=== PATIENT | male | born 1975 | race Caucasian/White ===

== ENCOUNTER 2019-09-30 09:32 | Outpatient (CLI) | payer OTHER, SELFPAY ==
[2019-10-01 14:58] LABS: SARS-CoV-2 RNA PCR Negative
== END 2019-09-30 09:33 | disposition home or self-care (01) ==
LOC: CHSLAB 09:37
PROVIDERS: PCP Family Medicine; Visit Provider Family Medicine
DX: Z20.828 Contact with and (suspected) exposure to other viral communicable diseases (principal)
CPT/HCPCS: 87635; C9803; U0003

== ENCOUNTER 2019-10-07 15:04 | Emergency (ER) | payer OTHER, SELFPAY ==
[2019-10-07 15:05] VITALS: BP 149/100; PULSE 81; RESP 16; TEMP 36.8; O2SAT 95
--- NOTE | 2019-10-07 15:15 | ED.ANIMALBIT ---
HPI - Animal Bite General Chief Complaint: Unspecified Stated Complaint: stung by something Time Seen by Provider: 10/07/19 15:14 Source: patient Mode of arrival: ambulatory Limitations: no limitations History of Present Illness HPI narrative: 44-year-old man comes in today complaining of left-sided facial swelling that started few hours ago. Patient states he was stone near his left eye by what he thinks was a wasp. He was at work at that time. He denies any nausea, vomiting, lightheadedness, rash, throat swelling, wheezing or tongue swelling. He has had no prior allergic reactions to bee or wasp stings. complaint: other ( Wasp sting) Onset (ago): hour(s) (2) Animal: other ( wasp) Description of animal: wild animal Location: face Context: unprovoked Treatments prior to arrival: other ( cool compress) Related Data Home Medications Medication Instructions Recorded Confirmed atorvastatin 40 mg PO DAILY 10/07/19 10/07/19 Allergies Allergy/AdvReac Type Severity Reaction Status Date / Time No Known Allergies Allergy Verified 10/07/19 15:15 Review of Systems Constitutional: Constitutional: Denies chills and Denies fever(s) Eyes: Eyes: Denies change in vision and Denies photophobia ENT: Denies dysphagia, Denies nasal congestion and Denies sore throat Cardiovascular: Cardiovascular: Denies chest pain and Denies radiating jaw, neck or arm pain Respiratory: Respiratory: Denies cough, Denies dyspnea and Denies wheezing Gastrointestinal: Gastrointestinal: Denies abdominal pain, Denies nausea and Denies vomiting Musculoskeletal: Musculoskeletal: Denies back pain, Denies joint swelling and Denies muscle cramps Integumentary/Breasts: Skin/Breast: Denies pruritus, Denies erythema and Denies rash Neurologic: Denies vertigo, Denies dizziness and Denies syncope Hematologic/Lymphatic: Hematologic/Lymphatic: Denies easy bleeding and Denies easy bruising Allergic/Immunologic: Allergic/Immunologic: Denies lip swelling, Denies throat swelling and Denies tongue swelling PMFSH Social History Social History Smoking status: Never smoker Substance use: never Living arrangements: with family Occupation/Education: occupation Exam Const: General: healthy appearing, no acute distress and alert Orientation/consciousness: patient oriented x3 HENMT: Ears: external ears normal, TM's normal bilaterally and EAC's normal Mouth: Yes moist mucous membranes Throat: posterior oropharynx normal and uvula midline Other: Left-sided facial swelling including the periorbital area, forehead, left cheek and down to the jaw line. There is no warmth or erythema. Eyes: Conjunctivae: conjunctivae normal Pupils: Equal, round and reactive pupils present EOM: EOMs intact bilaterally Resp: Effort & Inspection: normal respiratory effort and not labored Auscultation: clear to auscultation bilaterally, no rales, no rhonchi and no wheezes Cardio: Rate: regular rate Rhythm: regular rhythm Heart sounds: no murmurs Skin: General skin exam: normal color, no jaundice and no pallor Rashes: no rashes Neuro: General: patient oriented x3, moves all extremities, no focal motor deficits and CN's II-XI intact bilaterally Speech: normal speech Extrem: General: normal to inspection and no clubbing, cyanosis or edema Psych: Appearance: grossly normal and well kempt Mental Status: mental status grossly normal Affect: normal affect Attitude: cooperative Thought content: Yes Normal thought content present MDM - Animal Bite Differential Diagnosis Differential diagnosis: Likely other ( Insect sting) Discharge Plan Discharge Clinical Impression: Insect sting Qualifiers: Encounter type: initial encounter Injury intent: accidental or unintentional Qualified Code(s): T63.481A - Toxic effect of venom of other arthropod, accidental (unintentional), initial encounter Patient Dispositio
[2019-10-07] MEDS: methylPREDNISolone SOD SUCC 125 MG VIAL IM (15:29)
[2019-10-07 15:38] VITALS: RESP 14; O2SAT 95
== END 2019-10-07 15:40 | disposition home or self-care (01) ==
PROVIDERS: Emergency Provider Emergency Medicine; PCP Family Medicine
DX: T63.481A Toxic effect of venom of other arthropod, accidental (unintentional), initial encounter (principal)
CPT/HCPCS: 96372; 99283; J2930

== ENCOUNTER 2021-05-10 09:09 | Outpatient (CLI) | payer OTHER, SELFPAY ==
--- NOTE | ~2021-05-10 | XR_ITS ---
XR ankle LT min 3V DATE: 05/10/2021 09:25 INDICATION: Left posterior heel pain for 6 months with lump TECHNIQUE: 4 views COMPARISON: None FINDINGS: There is prominent posterior calcaneal enthesopathy. This is associated with overlying soft tissue prominence, accounting for the clinical complaint of lump/protrusion. There is mild lateral soft tissue swelling of the ankle. No fracture or dislocation of the ankle or d isruption of the ankle mortise. No periosteal reaction or bone destruction. IMPRESSION: Prominent posterior calcaneal enthesopathy Reviewed, dictated and finalized at location A.
== END 2021-05-10 09:10 | disposition home or self-care (01) ==
LOC: CHSIMG 09:11
PROVIDERS: PCP Family Medicine; Visit Provider Family Medicine
DX: M79.672 Pain in left foot (principal)
CPT/HCPCS: 73610

== ENCOUNTER 2022-04-07 15:46 | Outpatient (CLI) | payer OTHER, SELFPAY ==
--- NOTE | ~2022-04-07 | XR_ITS ---
EXAMINATION: XR chest 2V 04/07/2022 16:16 INDICATION: Left-sided chest pain PROCEDURE: 2 view chest COMPARISON: No prior studies for comparison. FINDINGS: The lungs are clear. The cardiomediastinal silhouette is within normal limits. There are no pleural effusions. There is no pneumothorax suspected. IMPRESSION: 1: NO ACUTE CARDIOPULMONARY DISEASE. Reviewed, dictated and finalized at location B. MATIC HOIST OPERATOR
== END 2022-04-07 15:47 | disposition home or self-care (01) ==
LOC: CHSIMG 15:48
PROVIDERS: PCP Family Medicine; Visit Provider Family Medicine
DX: R07.9 Chest pain, unspecified (principal)
CPT/HCPCS: 71046

== ENCOUNTER 2022-05-19 09:30 | Outpatient (CLI) | payer OTHER, SELFPAY ==
--- NOTE | 2022-05-19 09:30 | EST_ITS ---
Patient Info Name: Sanjay Harmon Age: 47 years : 1975 Gender: Male Ht: 70 in Wt: 220 lbs BSA: 2.25 m2 HR: 83 bpm BP: 153 / 102 mmHg Heart Rhythm: Sinus Rhythm Technical Quality: Good Exam Date: 05/19/2022 9:44 AM Exam Location: [facility] Patient Status: Outpatient Admit Date: 05/19/2022 Staff Ordering Physician: Dennis Good MD Attending Provider: Santiago DONALD CEP Exercise Technologist: Celestina Baker CRT Exercise Physician: Meredith Donald CEP Exam Type: CA stress test treadmill Study Info Indications ChestPain - A treadmill exercise stress test was performed. History/Risk Factors Obesity: Yes History/Risk Factors Chest Pain. Summary 1. 1. Negative Elvis exercise stress test for ischemic ST changes by ECG criteria. 2. 2. Good functional capacity, achieving 12 METs of workload. 3. 3. Appropriate HR response to exercise. 4. 4. Appropriate HR recovery at 1 minute post exercise. 5. 5. Baseline hypertension with hypertensive response to exercise. 6. 6. No imaging with stress testing. Protocol: Elvis Stress ECG Details Stage: REST Duration (min): 2 min : 25 sec Speed (mph): 0.0 Grade (%): 0 HR (bpm): 83 SBP (mmHg): 153 DBP (mmHg): 102 METS: --- Stage: REST Duration (min): 3 min : 36 sec Speed (mph): 0.0 Grade (%): 0 HR (bpm): 88 SBP (mmHg): 153 DBP (mmHg): 102 METS: --- Stage: STAGE 1 Duration (min): 1 min : 0 sec Speed (mph): 1.7 Grade (%): 10 HR (bpm): 99 SBP (mmHg): 153 DBP (mmHg): 102 METS: --- Stage: STAGE 1 Duration (min): 2 min : 0 sec Speed (mph): 1.7 Grade (%): 10 HR (bpm): 106 SBP (mmHg): 153 DBP (mmHg): 102 METS: --- Stage: STAGE 1 Duration (min): 3 min : 0 sec Speed (mph): 1.7 Grade (%): 10 HR (bpm): 103 SBP (mmHg): 164 DBP (mmHg): 102 METS: --- Stage: STAGE 2 Duration (min): 1 min : 0 sec Speed (mph): 2.5 Grade (%): 12 HR (bpm): 117 SBP (mmHg): 164 DBP (mmHg): 102 METS: --- Stage: STAGE 2 Duration (min): 2 min : 0 sec Speed (mph): 2.5 Grade (%): 12 HR (bpm): 125 SBP (mmHg): 164 DBP (mmHg): 102 METS: --- Stage: STAGE 2 Duration (min): 3 min : 0 sec Speed (mph): 2.5 Grade (%): 12 HR (bpm): 127 SBP (mmHg): 174 DBP (mmHg): 103 METS: --- Stage: STAGE 3 Duration (min): 1 min : 0 sec Speed (mph): 3.4 Grade (%): 14 HR (bpm): 137 SBP (mmHg): 174 DBP (mmHg): 103 METS: --- Stage: STAGE 3 Duration (min): 2 min : 0 sec Speed (mph): 3.4 Grade (%): 14 HR (bpm): 149 SBP (mmHg): 174 DBP (mmHg): 103 METS: --- Stage: STAGE 3 Duration (min): 3 min : 0 sec Speed (mph): 3.4 Grade (%): 14 HR (bpm): 151 SBP (mmHg): 206 DBP (mmHg): 95 METS: --- Stage: STAGE 4 Duration (min): 1 min : 0 sec Speed
== END 2022-05-19 09:31 | disposition home or self-care (01) ==
LOC: CHSCARD 09:32
PROVIDERS: PCP Family Medicine; Visit Provider Family Medicine
DX: R07.9 Chest pain, unspecified (principal)
CPT/HCPCS: 93017

== ENCOUNTER 2022-10-16 09:56 | Outpatient (CLI) | payer OTHER, SELFPAY ==
[2022-10-16 10:25] LABS: Microalbumin Urine Random < 13.0 mg/L
[2022-10-16 11:02] LABS: Alanine Aminotransferase 37 U/L (16-63); Albumin Level 3.5 g/dL (3.4-5.0); Alkaline Phosphatase 98 U/L (46-116); Anion Gap 9 mmol/L (8-16); Aspartate Amino Transferase 22 U/L (15-37); Bilirubin,Total 0.5 mg/dL (0.00-1.00); Blood Urea Nitrogen 10 mg/dL (7-18); Calcium 8.9 mg/dL (8.5-10.1); Carbon Dioxide 27 mmol/L (21-32); Chloride 104 mmol/L (98-108); Cholesterol 131 mg/dL (0-200); Estimated Glomerular Filt Rate > 60; Glucose 105 mg/dL (70-99); HDL Direct 27 mg/dL (40-60); LDL Cholesterol Calculated 62 mg/dL (<130); Osmolality Calculated 289 mOsm/kg (285-295); Potassium 4.2 mmol/L (3.5-5.1); Sodium 140 mmol/L (136-145); Total Protein 6.6 g/dL (6.4-8.2); Triglycerides 209 mg/dL (0-150)
== END 2022-10-16 09:57 | disposition home or self-care (01) ==
LOC: CHSLAB 10:00
PROVIDERS: PCP Family Medicine; Visit Provider Family Medicine
DX: E11.9 Type 2 diabetes mellitus without complications (principal)
CPT/HCPCS: 36415; 80053; 80061; 82043; 83036

== ENCOUNTER 2024-05-04 09:55 | Outpatient (CLI) | payer OTHER, SELFPAY ==
[2024-05-04 10:17] LABS: Basophils Absolute Auto 0.02 K/mm3 (0.00-0.10); Basophils Percent Auto 0.5 % (0.0-1.0); Eosinophils Absolute Auto 0.18 K/mm3 (0.02-0.50); Eosinophils Percent Auto 4.2 % (1.0-6.0); Hematocrit 40.9 % (40.0-54.0); Hemoglobin 13.7 g/dL (14.0-18.0); Immature Granulocyte Absolute 0.01 K/mm3 (0.00-0.00); Immature Granulocyte Percent A 0.2 % (0.0-0.0); Lymphocytes Absolute Auto 1.38 K/mm3 (1.10-4.50); Lymphocytes Percent Auto 32.5 % (18.0-42.0); Mean Corpuscular HGB Conc 33.5 g/dL (32-36); Mean Corpuscular Hemoglobin 29.3 pg (27.0-31.0); Mean Corpuscular Volume 87.6 fL (78.0-102.0); Mean Platelet Volume 9.2 fl (8.7-11.0); Monocytes Absolute Auto 0.37 K/mm3 (0.10-0.90); Monocytes Percent Auto 8.7 % (2.0-11.0); Neutrophils Absolute Auto 2.29 K/mm3 (1.70-7.20); Neutrophils Percent Auto 53.9 % (50.0-70.0); Platelet Count Result 159 K/mm3 (150-420); Red Blood Count 4.67 M/mm3 (4.70-6.10); Red Cell Distribution Width 13.4 % (11.6-14.4); White Blood Count 4.3 K/mm3 (4.8-10.8)
[2024-05-04 10:25] LABS: Hemoglobin A1C 5.9 % (<5.7)
[2024-05-04 10:51] LABS: Alanine Aminotransferase 60 U/L (16-63); Albumin Level 3.7 g/dL (3.4-5.0); Alkaline Phosphatase 103 U/L (46-116); Anion Gap 7 mmol/L (4-12); Aspartate Amino Transferase 22 U/L (15-37); Blood Urea Nitrogen 15 mg/dL (7-18); Calcium 8.3 mg/dL (8.5-10.1); Carbon Dioxide 30 mmol/L (21-32); Chloride 104 mmol/L (98-108); Cholesterol 151 mg/dL (0-200); Estimated Glomerular Filt Rate > 60; Glucose 102 mg/dL (70-99); HDL Direct 34 mg/dL (40-60); LDL Cholesterol Calculated 80 mg/dL (<130); Osmolality Calculated 292 mOsm/kg (285-295); Potassium 4.2 mmol/L (3.5-5.1); Sodium 141 mmol/L (136-145); Total Protein 6.8 g/dL (6.4-8.2); Triglycerides 186 mg/dL (0-150)
[2024-05-04 10:52] LABS: Thyroid Stimulating Hormone Reflex 1.91 u/IU/mL (0.36-3.74)
--- OUTSIDE RECORDS SUMMARY | 2024-05-04 11:04 | XMS_ITS | Clinical Summary ---
Author Organization [facility] Address [address] [place] [address] Care Team Providers Care Disability Services Coordinator Name Role Phone Unavailable Primary Care Provider Unavailabl e Social History Tobacco Use Types Packs/Day Years Used Date Smoking Tobacco: Never Assessed Sex and Gender Information Value Date Recorded Sex Assigned at Not on file Legal Sex Male 4:51 PM CDT Gender Identity Not on file Sexual Orientation Not on file Plan of Treatment Health Maintenance Due Date Last Done Comments Colorectal Cancer Screening Colonoscopy (10 Years) 1975 Annual Physical 1980 Hepatitis C 1995 DTaP, Tdap and Td Vaccines ( 1 - Tdap) 1996 Hepatitis B Vaccines (1 of 3 - 19+ 3-dose series) 1996 COVID-19 Vaccine (2023-2 5 season) 2023 Influenza Adult (#1) 2023 Meningococcal B Vaccine Aged Out No l onger eligible based on patient's age to complete this topic Meningococcal Vaccine Aged Out No darlene johnathan eligible based on patient's age to complete this topic Pneumococcal Vaccine: Pediat rics (0 to 5 Years) and At-Risk Patients (6 to 64 Years) Aged Out No longer eligible b ased on patient's age to complete this topic RSV Immunizations Under 20 Months Aged Out No longer eligible based on patient's age to complete this topic
--- OUTSIDE RECORDS SUMMARY | 2024-05-04 11:04 | XMS_ITS ---
Author Organization [facility] Address [address] [place], [place] [id number] Care Team Providers Care Kick Plate Installer Name Role Phone AMARILIS UMAÑA Unavailable [phone] Dennis Good Unavailable Unavailable LORENE FISHMAN Unavailable [phone] REASON FOR VISIT Lft pain Encounters Encounter Location Date Provider Diagnosis [place] [address] [place], [place] [id number] 09/10/2023 LORENE FISHMAN Plan Of Treatment No Information Progress Notes * WENDY ARROYODOB:1975 (49 yo M)Acc No.[id number]:09/10/2023 Patient: WENDY REDMAN Provider: Kaleigh FISHMAN :1975 A ge:48 Y S ex:Male Date:09/10/2023 Address:[address] [place], [place] [id number] Subjective: * Chief Complaints: * 1 . Lft pain. * Medical History: Objective: * Vitals: Assessment: Plan: * Treatment: * Billing Information: * Visit Code: * Procedure Codes: * Electronic signature of ROSA FISHMAN DPM on 05/04/2024 at 11:04 AM CDT Sign off status: Pending * Provider: Kaleigh FISHMAN Date: 0 09/10/2023 Generated for Adolfo austin/Jostin/eTransmitting on: 0 05/04/2024 11:04 AM CDT
--- OUTSIDE RECORDS SUMMARY | 2024-05-04 11:04 | XMS_ITS | Patient Health Record ---
Author Organization [facility] Address [address] [place], [place] [id number] Care Team Providers Care Wilton Weaver Name Role Phone AMARILIS UMAÑA Unavailable [phone] Dennis Good Unavailable Unavailable LORENE FISHMAN Unavailable [phone] Reason For Referral No Information Medications Medication SIG (Take, Route, Frequency, Duration) Notes Start Date End Date Status Medrol 4 MG as directed Orally 09/05/2022 Active Plan Of Treatment No Information Insurance Providers Payer Name Payer Address Payer Phone Subscriber Number Group Number Insured Name Patient Relationship to Insured Coverage Start Date Coverage End Date R [place] / [employer] [address] [id number] WEND[employer] Self - patient is the insured
[2024-05-05 23:29] LABS: Arsenic, Blood <10 mcg/L (<23); Mercury, Blood <5 mcg/L (<OR=10)
[2024-05-06 00:04] LABS: Lead, Blood 2.4 mcg/dL (<3.5)
[2024-05-06 17:13] LABS: Lead, Blood 2.3 mcg/dL (<3.5)
== END 2024-05-04 09:56 | disposition home or self-care (01) ==
LOC: CHSLAB 09:56
PROVIDERS: PCP Family Medicine; Visit Provider Family Medicine
DX: I10 Essential (primary) hypertension (principal); E03.9 Hypothyroidism, unspecified; E11.9 Type 2 diabetes mellitus without complications; Z77.098 Contact with and (suspected) exposure to other hazardous, chiefly nonmedicinal, chemicals
CPT/HCPCS: 36415; 80053; 80061; 82175; 83036; 83655; 83825; 84443; 85025

== ENCOUNTER 2024-05-31 14:50 | Outpatient (CLI) | payer OTHER, SELFPAY ==
--- NOTE | ~2024-05-31 | CT_ITS ---
EXAMINATION: CT sinus wo con DATE: 05/31/2024 15:02 INDICATION: Chronic sinusitis TECHNIQUE: Computed tomography (CT) of the paranasal sinuses was performed without intravenous contra st. The dose-length product was 257.43 mGy-cm. Automated exposure control and iterative reconstructio n technique were employed. COMPARISON: No prior studies for comparison. FINDINGS: There is moderate mucosal thickening of the left maxillary sinus with occlusion left ostiom eatal unit. There is mild mucoperiosteal reaction. No significant nasal septal deviation. Right ostio meatal unit is patent. Mastoids are pneumatized. IMPRESSION: 1. Moderate chronic left maxillary sinus disease. Reviewed, dictated and finalized at location A.
--- OUTSIDE RECORDS SUMMARY | 2024-05-31 17:07 | XMS_ITS | Clinical Summary ---
Author Organization [facility] Address [address] [place] [address] Care Team Providers Care Ballet Master/Mistress Name Role Phone Unavailable Primary Care Provider [...] 1996 COVID-19 Vaccine (2023-2 5 season) 2023 Meningococcal B Vaccine Aged Out No l onger eligible based on patient's age to complete this topic Meningococcal Vaccine Aged Out No darlene johnathan eligible based on patient's age to complete this topic Pneumococcal Vaccine: Pediat rics (0 to 5 Years) and At-Risk Patients (6 to 49 Years) Aged Out No longer eligible b ased on patient's age to complete this topic RSV Immunizations Under 20 Months Aged Out No longer eligible based on patient's age to complete this topic
--- OUTSIDE RECORDS SUMMARY | 2024-05-31 17:07 | XMS_ITS | Patient Health Record ---
Author Organization [facility] Address [address] [place], [place] [phone] Care Team Providers Care Inspector Clip On Sunglasses Name Role Phone AMARILIS UMAÑA Unavailable [phone] Dennis Good Unavailable Unavailable LORENE FISHMAN Unavailable [phone] Reason For Referral No Information Medications Medication SIG (Take, Route, Frequency, Duration) Notes Start Date End Date Status Medrol 4 MG as directed Orally 09/05/2022 Active Plan Of Treatment No Information Insurance Providers Payer Name Payer Address Payer Phone Subscriber Number Group Number Insured Name Patient Relationship to Insured Coverage Start Date Coverage End Date R [place] / [employer] [address] [id number] W[employer] Self - patient is the insured
--- OUTSIDE RECORDS SUMMARY | 2024-05-31 17:07 | XMS_ITS ---
Author Organization [facility] Address [address] [place], [place] [id number] Care Team Providers Care Flying I Instructor Name Role Phone AMARILIS UMAÑA Unavailable [phone] Dennis Good Unavailable Unavailable LORENE FISHMAN Unavailable [phone] REASON FOR VISIT Lft pain Encounters Encounter Location Date Provider Diagnosis [place] [address] [place], [place] [id number] 09/10/2023 LORENE FISHMAN Plan Of Treatment No Information Progress Notes * WENDY ARROYODOB:1975 (49 yo M)Acc No.[id number]:09/10/2023 Patient: WENDY REDMAN Provider: Kaleigh FISHMAN :1975 A ge:48 Y S ex:Male Date:09/10/2023 Address:[address] [place], [place] [phone] Subjective: * Chief Complaints: * 1 . Lft pain. * Medical History: Objective: * Vitals: Assessment: Plan: * Treatment: * Billing Information: * Visit Code: * Procedure Codes: * Electronic signature of ROSA FISHMAN DPM on 05/31/2024 at 05:07 PM CDT Sign off status: Pending * Provider: Kaleigh FISHMAN Date: 09/10/2023 Generated for Adolfo austin/Jostin/eTransmitting on: 0 05/31/2024 05:07 PM CDT
== END 2024-05-31 14:51 | disposition home or self-care (01) ==
PROVIDERS: PCP Family Medicine; Visit Provider Family Medicine
DX: J32.0 Chronic maxillary sinusitis (principal)
CPT/HCPCS: 70486